=== PATIENT | female | born 1980 | race Caucasian/White ===

== ENCOUNTER 2019-11-08 09:32 | Emergency (ER) | payer OTHER ==
[2019-11-08 09:39] VITALS: TEMP 97.9
[2019-11-08] MEDS ORDERED: SODIUM CHLORIDE 0.9% 500 ML 500 ML IV STA (10:15)
[2019-11-08] MEDS ORDERED: ONDANSETRON 4 MG/2 ML VIAL IVP STA (10:15)
[2019-11-08] MEDS ORDERED: KETOROLAC 30 MG/ML 1 ML VIAL IVP STA (10:15)
--- NOTE | 2019-11-08 10:35 | ED ---
Female Urogenital HPI - General Chief complaint: Vaginal Bleeding Stated complaint: ovarien cyst vag bleed Time Seen by Provider: 11/08/19 10:04 Source: patient Mode of arrival: ambulatory - History of Present Illness Initial comments: Patient is a 39-year-old female presenting to emergency Department with complaints of lower abdominal pain, cramping, vaginal bleeding has been intermittent for the last 2 days. Patient states she has a history of partial hysterectomy and was diagnosed with a right-sided ovarian cyst few weeks ago. Patient states the bleeding has been intermittent, seems to increase when she is working as she does have a very strenuous job. She does admit to one episode of vomiting, mild nausea at this time. She denies any fever, chills. She denies a ny chest pain, shortness of breath. She denies any other abdominal surgeries. She states she was treated for a UTI approximately 2 weeks ago and did finish the medication. She denies any dysuria or increased frequency at this time. She is no further complaints at this time. Upon arrival to the ER, vital signs are stable. - Related Data Home Medications Medication Instructions Recorded Confirmed Citalopram Hydrobromide [CeleXA] 20 mg PO HS 11/08/19 11/08/19 QUEtiapine [SEROquel] 25 mg PO DAILY 11/08/19 11/08/19 QUEtiapine [SEROquel] 100 mg PO HS 11/08/19 11/08/19 QUEtiapine [SEROquel] 100 mg PO W/LUNCH 11/08/19 11/08/19 Allergies Allergy/AdvReac Type Severity Reaction Status Date / Time No Known Allergies Allergy Verified 11/08/19 11:01 Review of Systems ROS Statement: Those systems with pertinent positive or pertinent negative responses have been documented in the HPI. ROS Other: All systems not noted in ROS Statement are negative. Past Medical History Past Medical History: Hypertension Past Surgical History: Hysterectomy Additional Past Surgical History / Comment(s): cysts removed from ovaries Past Psychological History: Anxiety, Depression Smoking Status: Current every day smoker Past Alcohol Use History: None Reported Past Drug Use History: None Reported General Exam - General Exam Comments Initial Comments: GENERAL: Well-appearing, well-nourished and in no acute distress. HEAD: Atraumatic, normocephalic. EYES: Pupils equal round and reactive to light, extraocular movements intact, sclera anicteric, conjunctiva are normal. ENT: TMs normal, nares patent, oropharynx clear without exudates. Moist mucous membranes. NECK: Normal range of motion, supple without lymphadenopathy or JVD. LUNGS: Breath sounds clear to auscultation bilaterally and equal. No wheezes rales or rhonchi. HEART: Regular rate and rhythm without murmurs, rubs or gallops. ABDOMEN: Tender to palpation in the right lower quadrant, suprapubic. Soft, normoactive bowel sounds. No guarding, no rebound. No masses appreciated. EXTREMITIES: Normal range of motion, no pitting or edema. No clubbing or cyanosis. NEUROLOGICAL: Normal speech, normal gait. PSYCH: Normal mood, normal affect. SKIN: Warm, Dry, normal turgor, no rashes or lesions noted. External exam: Present: normal external exam Speculum exam: Present: normal speculum exam. Absent: vaginal bleeding, foreign body By manual exam: Present: normal by manual exam. Absent: cervical motion tenderness Course Vital Signs 11/08/19 11/08/19 09:35 11:42 Temperature 97.9 F Pulse Rate 104 H 83 Respiratory 18 16 Rate Blood Pressure 155/92 114/76 O2 Sat by Pulse 100 99 Oximetry Medical Decision Making - Medical Decision Making Patient is a 39-year-old female, history of partial hysterectomy presenting with vaginal bleeding, lower abdominal pain intermittent for 2 days. Vitals are stable. Exam reveals right lower quadrant suprapubic tenderness. Labs reveal no acute findings, urine shows no evidence of infection. Ultrasound revealed a left ovarian cyst, recommend follow-up in 6 weeks. No other acute findings. Patient has been comfortable in the ER. Patient is stable for discharge and will follow up with her TELEGRAPH OFFICE TELEPHONE CLERK. She is in agreement with this plan of care. Return parameters were discussed with the patient she verbalized understanding. Case discussed with Dr. Arevalo. - Lab Data Result diagrams: 11/08/19 10:29 11/08/19 10:29 Lab Results 11/08/19 11/08/19 11/08/19 Range/Units 10:29 10:29 10:29 WBC 7.2 (3.8-10.6) k/uL RBC 4.57 (3.80-5.40) m/uL Hgb 13.8 (11.4-16.0) gm/dL Hct 43.6 (34.0-46.0) % MCV 95.5 (80.0-100.0) fL MCH 30.2 (25.0-35.0) pg MCHC 31.6 (31.0-37.0) g/dL RDW 13.0 (11.5-15.5) % Plt Count 250 (150-450) k/uL Neutrophils % 82 % Lymphocytes % 13 % Monocytes % 3 % Eosinophils % 1 % Basophils % 1 % Neutrophils # 5.8 (1.3-7.7) k/uL Lymphocytes # 0.9 L (1.0-4.8) k/uL Monocytes # 0.2 (0-1.0) k/uL Eosinophils # 0.1 (0-0.7) k/uL Basophils # 0.0 (0-0.2) k/uL Sodium 139 (137-145) mmol/L Potassium 4.0 (3.5-5.1) mmol/L Chloride 109 H (98-107) mmol/L Carbon Dioxide 27 (22-30) mmol/L Anion Gap 3 mmol/L BUN 10 (7-17) mg/dL Creatinine 0.53 (0.52-1.04) mg/dL Est GFR (CKD-EPI)AfAm >90 (>60 ml/min/1.73 sqM) Est GFR (CKD-EPI)NonAf >90 (>60 ml/min/1.73 sqM) Glucose 86 (74-99) mg/dL Calcium 8.7 (8.4-10.2) mg/dL Total Bilirubin 0.4 (0.2-1.3) mg/dL AST 18 (14-36) U/L ALT 12 (4-34) U/L Alkaline Phosphatase 56 (38-126) U/L Total Protein 6.5 (6.3-8.2) g/dL Albumin 4.0 (3.5-5.0) g/dL Urine Color Colorless Urine Appearance Clear (Clear) Urine pH 6.5 (5.0-8.0) Ur Specific [place] 1.003 (1.001-1.035) Urine Protein Negative (Negative) Urine Glucose (UA) Negative (Negative) Urine Ketones Negative (Negative) Urine Blood Negative (Negative) Urine Nitrite Negative (Negative) Urine Bilirubin Negative (Negative) Urine Urobilinogen <2.0 (<2.0) mg/dL Ur Leukocyte Esterase Negative (Negative) Disposition Clinical Impression: Bilateral lower abdominal cramping, Ovarian cyst Disposition: HOME SELF-CARE Condition: Stable Instructions (If sedation given, give patient instructions): Ovarian Cyst (ED) Additional Instructions: Please return to the Emergency Department if symptoms worsen or any other concerns. Continue with ibuprofen or Aleve for discomfort. Follow-up with TELEGRAPH OFFICE TELEPHONE CLERK as discussed. Is patient prescribed a controlled substance at d/c from ED?: No Referrals: [facility] [Primary Care Provider] - 1-2 days
[2019-11-08 10:40] LABS: Appearance,Urine Clear (Clear); Basophils % (A) 1 %; Bilirubin,Urine Negative (Negative); Blood,Urine Negative (Negative); Color,Urine Colorless; Eosinophils # (A) 0.1 k/uL (0-0.7); Eosinophils % (A) 1 %; Glucose,Urine (UA) Negative (Negative); HCT 43.6 % (34.0-46.0); HGB 13.8 gm/dL (11.4-16.0); Ketones,Urine Negative (Negative); Leukocyte Esterase,Urine Negative (Negative); Lymphocytes # (A) 0.9 k/uL (1.0-4.8); Lymphocytes % (A) 13 %; MCH 30.2 pg (25.0-35.0); MCHC 31.6 g/dL (31.0-37.0); MCV 95.5 fL (80.0-100.0); Monocytes # (A) 0.2 k/uL (0-1.0); Monocytes % (A) 3 %; Neutrophils # (A) 5.8 k/uL (1.3-7.7); Neutrophils % (A) 82 %; Nitrite,Urine Negative (Negative); PH, Urine 6.5 (5.0-8.0); Platelet Count 250 k/uL (150-450); Protein,Urine Negative (Negative); RBC 4.57 m/uL (3.80-5.40); Specific Gravity,Urine 1.003 (1.001-1.035); Urobilinogen,Urine <2.0 mg/dL (<2.0); WBC 7.2 k/uL (3.8-10.6)
[2019-11-08 10:53] LABS: ALT 12 U/L (4-34); AST 18 U/L (14-36); African American GFR (CKD) >90 (>60 ml/min/1.73 sqM); Alkaline Phosphatase 56 U/L (38-126); Anion Gap 3 mmol/L; Blood Urea Nitrogen 10 mg/dL (7-17); Calcium 8.7 mg/dL (8.4-10.2); Carbon Dioxide 27 mmol/L (22-30); Chloride 109 mmol/L (98-107); Glucose 86 mg/dL (74-99); Non-African American GFR(CKD) >90 (>60 ml/min/1.73 sqM); Sodium 139 mmol/L (137-145); Total Bilirubin 0.4 mg/dL (0.2-1.3); Total Protein 6.5 g/dL (6.3-8.2)
--- NOTE | 2019-11-08 11:19 | US ---
EXAMINATION TYPE: US transvaginal DATE OF EXAM: 11/08/2019 COMPARISON: NONE CLINICAL HISTORY: pain, bleeding. Bleeding pain partial hysterectomy TECHNIQUE: Transvaginal (TV). EXAM MEASUREMENTS: Uterus: Surgically absent cm Endometrial Stripe: Surgically absent cm Right Ovary: Obscured by bowel gas. Left Ovary: 2.6 x 1.3 x 1.6 cm 1. Uterus: Surgically absent 2. Endometrium: Surgically absent 3. Right Ovary: Obscured by overlying bowel gas 4. Left Ovary: Cystic area seen 1.7 x 1.3 x 1.7 cm Spectral, color and waveform doppler imaging shows good arterial and venous flow within the left ov claudia; there is no evidence for ovarian torsion. 5. Bilateral Adnexa: wnl 6. Posterior cul-de-sac: wnl IMPRESSION: Left ovarian cystic lesion is of uncertain etiology and may reflect a functional ovarian cyst. Consid er follow-up study in 6 weeks.
[2019-11-08 11:43] VITALS: BP 114/76; PULSE 83; RESP 16
== END 2019-11-08 11:42 | disposition home or self-care (01) ==
LOC: EC 09:32
DX: N83.202 Unspecified ovarian cyst, left side (principal); F41.9 Anxiety disorder, unspecified; F32.9 Major depressive disorder, single episode, unspecified; F17.200 Nicotine dependence, unspecified, uncomplicated; Z79.899 Other long term (current) drug therapy; Z90.710 Acquired absence of both cervix and uterus
CPT/HCPCS: 36415; 80053; 85025; 81003; 93976; 76830; 99284; 96374; 96375; J2405; J1885

== ENCOUNTER 2020-02-14 17:43 | Emergency (ER) | payer OTHER ==
[2020-02-14] MEDS ORDERED: IBUPROFEN 600 MG TAB PO STA (18:50)
[2020-02-14] MEDS ORDERED: FAMOTIDINE 20 MG TAB PO STA (18:50)
[2020-02-14] MEDS ORDERED: DEXAMETHASONE SOD PHOSPHATE 10 MG/ML 1 ML VIAL IM STA (18:50)
[2020-02-14] MEDS ORDERED: ACET/COD 120MG/12MG LIQ 5ML CUP PO ONE (18:50)
[2020-02-14] MEDS ORDERED: IPRATROPIUM-ALBUTEROL 3 ML NEB INHALATION STA (18:50)
[2020-02-14] MEDS ORDERED: hydrOXYzine HCL 25 MG TAB PO STA (18:50)
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
--- NOTE | 2020-02-14 19:08 | XR ---
EXAMINATION TYPE: XR chest 2V DATE OF EXAM: 02/14/2020 COMPARISON: NONE HISTORY: Chest pain. TECHNIQUE: Frontal and lateral views of the chest are obtained. FINDINGS: There is no focal air space opacity, pleural effusion, or pneumothorax seen. The cardiac silhouette size is within normal limits. The osseous structures are intact. IMPRESSION: No acute cardiopulmonary process.
[2020-02-14] MEDS ORDERED: AZITHROMYCIN 500 MG TAB PO STA (19:10)
[2020-02-14 19:45] VITALS: BP 130/87; PULSE 62; RESP 18; TEMP 98.1
== END 2020-02-14 19:42 | disposition home or self-care (01) ==
LOC: EC 17:43
DX: J20.9 Acute bronchitis, unspecified (principal); J06.9 Acute upper respiratory infection, unspecified; F41.9 Anxiety disorder, unspecified; F32.9 Major depressive disorder, single episode, unspecified; I10 Essential (primary) hypertension; F17.200 Nicotine dependence, unspecified, uncomplicated; Z79.899 Other long term (current) drug therapy
CPT/HCPCS: 94640; 71046; 99285; 96372; J1100

== ENCOUNTER 2020-08-30 16:47 | Emergency (ER) | payer OTHER ==
[2020-08-30 16:55] VITALS: PULSE 111; RESP 18; TEMP 97.9
[2020-08-30] MEDS ORDERED: HYDROmorphone 1 MG/ML 1 ML SYRINGE IVP STA (17:12)
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
[2020-08-30 17:21] VITALS: BP 146/111
[2020-08-30 17:27] LABS: Basophils % (A) 0 %; Eosinophils # (A) 0.1 k/uL (0-0.7); Eosinophils % (A) 1 %; HCT 39.2 % (34.0-46.0); HGB 13.1 gm/dL (11.4-16.0); Lymphocytes # (A) 0.9 k/uL (1.0-4.8); Lymphocytes % (A) 12 %; MCH 30.1 pg (25.0-35.0); MCHC 33.3 g/dL (31.0-37.0); MCV 90.4 fL (80.0-100.0); Mean Platelet Volume 7.1; Monocytes # (A) 0.3 k/uL (0-1.0); Monocytes % (A) 4 %; Neutrophils # (A) 6.8 k/uL (1.3-7.7); Neutrophils % (A) 83 %; Platelet Count 333 k/uL (150-450); RBC 4.33 m/uL (3.80-5.40); RDW 13.1 % (11.5-15.5); WBC 8.2 k/uL (3.8-10.6)
[2020-08-30 17:36] LABS: INR 0.9 (<1.2); Partial Thromboplastin Time 25.2 sec (22.0-30.0); Prothrombin Time 9.6 sec (9.0-12.0)
[2020-08-30 17:41] LABS: ALT 12 U/L (4-34); AST 24 U/L (14-36); African American GFR (CKD) >90 (>60 ml/min/1.73 sqM); Albumin 4.3 g/dL (3.5-5.0); Alcohol <10 mg/dL; Alkaline Phosphatase 78 U/L (38-126); Anion Gap 9 mmol/L; Blood Urea Nitrogen 10 mg/dL (7-17); Calcium 9.6 mg/dL (8.4-10.2); Carbon Dioxide 26 mmol/L (22-30); Chloride 104 mmol/L (98-107); Glucose 104 mg/dL (74-99); Non-African American GFR(CKD) >90 (>60 ml/min/1.73 sqM); Potassium 3.9 mmol/L (3.5-5.1); Sodium 139 mmol/L (137-145); Total Bilirubin 0.5 mg/dL (0.2-1.3); Total Protein 7.2 g/dL (6.3-8.2)
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
[2020-08-30] MEDS ORDERED: HYDROcodone/APAP 5-325MG 1 EACH TAB PO STA (19:16)
== END 2020-08-30 19:22 | disposition home or self-care (01) ==
LOC: EC 16:47
DX: S02.2XXA Fracture of nasal bones, initial encounter for closed fracture (principal); S05.12XA Contusion of eyeball and orbital tissues, left eye, initial encounter; M25.552 Pain in left hip; I10 Essential (primary) hypertension; F32.9 Major depressive disorder, single episode, unspecified; F41.9 Anxiety disorder, unspecified; F12.90 Cannabis use, unspecified, uncomplicated; V88.9XXA Person injured in other specified (collision)(noncollision) transport accidents involving nonmotor vehicle, nontraffic, initial encounter; Y92.410 Unspecified street and highway as the place of occurrence of the external cause
CPT/HCPCS: 36415; 93005; 80053; 84484; 85025; 85610; 85730; 73502; 73552; 72125; 70486; 70450; 99284; 96374; G0480; J1170; 80320

== ENCOUNTER 2022-04-30 11:52 | Emergency (ER) | payer OTHER ==
[2022-04-30 11:58] VITALS: BP 138/99; PULSE 101; RESP 20; TEMP 97.5
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
--- NOTE | 2022-04-30 13:18 | XR ---
EXAMINATION TYPE: XR lumbosacral spine min 4V DATE OF EXAM: 04/30/2022 CLINICAL HISTORY: Low back pain. TECHNIQUE: Frontal, lateral, and oblique images of the lumbar spine are obtained. COMPARISON: None FINDINGS: There are 5 lumbar type vertebral bodies identified. There is dextroconvex scoliosis cente red at L2-L3 level. There is multilevel grade 1 retrolisthesis throughout the entire lumbar spine. Ve rtebral body heights are maintained. Moderate disc space narrowing with mild to moderate anterior spu rring and endplate sclerosis noted at L3-L4 level. Additional mild to moderate multilevel anterior an d lateral spurring is seen. Oblique images appear within normal limits. Overlying soft tissue is unre markable. IMPRESSION: As above.
--- NOTE | 2022-04-30 13:20 | XR ---
EXAMINATION TYPE: XR cervical spine comp DATE OF EXAM: 04/30/2022 TECHNIQUE: Frontal, lateral, oblique, and open mouth view of the cervical spine are obtained. HISTORY: pain COMPARISON: CT cervical spine August 30, 2020 FINDINGS: The cervical spine is visualized in its entirety from C1 thru the top of T1 level, it is s atisfactory in alignment without evidence of acute fracture or dislocation. The pre-vertebral soft t issue appears within normal limits. The C1-C2 articulation is within normal limits on the open mouth view. Vertebral body heights and disc space heights are maintained. Mild to moderate anterior spurr ing C5-C6 and C6-C7 levels. Mild anterior spurring C3-C4 level. The oblique images are within normal limits. Overlying soft tissue is unremarkable. IMPRESSION: As above.
[2022-04-30] MEDS ORDERED: KETOROLAC 15 MG/ML 1 ML VIAL IM STA (14:13)
== END 2022-04-30 14:27 | disposition home or self-care (01) ==
LOC: EC 11:52
DX: M54.50 Low back pain, unspecified (principal); I10 Essential (primary) hypertension; F41.9 Anxiety disorder, unspecified; F32.A Depression, unspecified; F17.200 Nicotine dependence, unspecified, uncomplicated; F12.90 Cannabis use, unspecified, uncomplicated
CPT/HCPCS: 72050; 72110; 99284; 96372; J1885

== ENCOUNTER 2022-10-11 10:50 | Day surgery (SDC) | payer OTHER ==
[2022-10-09 16:13] VITALS: BMI 19.1
[~2022-10-11 10:50] MED LIST: LACTATED RINGERS 1,000 ML IV SCH
[2022-10-11 11:14] VITALS: RESP 16; TEMP 97
[2022-10-11] MEDS ORDERED: PROPOFOL 10 MG/ML 20 ML VIAL IV ONE (11:33)
[2022-10-11] MEDS ORDERED: fentaNYL (PF) 50 MCG/ML 2 ML AMP ONE (11:33)
[2022-10-11] MEDS ORDERED: MIDAZOLAM 2 MG/2 ML VIAL ONE (11:33)
[2022-10-11] MEDS ORDERED: LIDOCAINE 2% INJ 20 MG/ML (2 ML VIAL) ONE (11:33)
--- NOTE | 2022-10-11 11:49 | P.PCN ---
Date of Procedure: 10/11/22 Procedure(s) Performed: Brief history: Patient is a pleasant 41-year-old white female scheduled for an elective upper endoscopy as well as colonoscopy as a part of evaluation of chronic intermittent nausea vomiting and change in bowel habits for the last several years duration Procedure performed: Esophagogastroduodenoscopy with biopsy Colonoscopy with random biopsy Preoperative diagnosis: Chronic intermittent nausea vomiting Change in bowel habits Anesthesia: MAC Procedure: After informed consent was obtained from the patient was brought into the endoscopy unit and IV sedation was administered by anesthesia under continuous monitoring. Initially upper endoscopy was done. The Olympus GF 160 video endoscope was inserted inserted into the mouth and esophagus intubated without any difficulty and was gradually advanced into the stomach and duodenum and carefully examined. The bulb and second part of the duodenum appeared normal. Biopsies were done from the duodenum to rule out celiac disease The scope was then withdrawn into the stomach adequately insufflated with air and upon careful examination the antrum mild gastritis and biopsies were done from this area. Mucosa body, cardia and fundus appeared normal. The scope was then withdrawn into the esophagus. The GE junction was located at 40 cm to the incisors. It appeared regular with no erythema erosions or ulcerations. Rest of the esophagus appeared normal. Patient tolerated the procedure well. At this time the patient continued to remain sedation. Initial digital rectal examination was normal. Olympus CF 160 video colonoscope was then inserted into the rectum and gradually advanced to the cecum without any difficulty. Careful examination was performed as the scope was gradually being withdrawn. The prep was excellent. The cecum, ascending colon, transverse colon, descending colon, sigmoid colon and rectum appeared normal. The transverse colon there was a 3-4 mm flat polyp that was removed by cold biopsy. Random biopsies were done from ascending and descending colon to rule out microscopic/collagenous colitis. Retroflexion was performed in the rectum and no lesions were noted. Patient tolerated the procedure well. Impression: 1. Upper endoscopy revealed mild antral gastritis but no evidence of esophagitis or peptic ulcer disease 2. Colonoscopy revealed a 3 mm flat transverse colon polyp status post cold biopsy and the rest of the colon appeared normal Recommendations: Findings of this examination were discussed with the patient as well as her family. She was advised to follow with the biopsy results. She'll be seen in office in 2 weeks. Continue with Prilosec 20 mg daily as well as Zofran as needed. Follow up in office in 2 weeks
[2022-10-11 12:09] VITALS: BP 110/62; PULSE 62
== END 2022-10-11 12:39 | disposition home or self-care (01) ==
LOC: ORWHC2ENDO 10:50
PROVIDERS: ATTEND Internal Medicine Gastroenterology
DX: D12.3 Benign neoplasm of transverse colon (principal); K29.50 Unspecified chronic gastritis without bleeding; K21.00 Gastro-esophageal reflux disease with esophagitis, without bleeding; I10 Essential (primary) hypertension; F17.200 Nicotine dependence, unspecified, uncomplicated; F41.9 Anxiety disorder, unspecified; F32.A Depression, unspecified; F12.90 Cannabis use, unspecified, uncomplicated; Z90.710 Acquired absence of both cervix and uterus; Z79.899 Other long term (current) drug therapy
CPT/HCPCS: 88305; 45380; 43239; J2250; J3010; J2704; J2001

== ENCOUNTER 2024-08-12 14:07 | Emergency (ER) | payer OTHER ==
[2024-08-12 14:20] VITALS: RESP 16; TEMP 97.8
--- NOTE | 2024-08-12 14:41 | ED ---
General Adult HPI - General Chief complaint: Extremity Problem,Nontraumatic Stated complaint: L arm pain, growth under arm Time Seen by Provider: 08/12/24 14:22 Source: patient, RN notes reviewed Mode of arrival: ambulatory Limitations: no limitations - History of Present Illness Initial comments: This is a 44-year-old female presents emergency department for complaint of left shoulder pain over the past 3 weeks. Patient states that she had multiple falls over the winter and a recent fall happening about a month ago she tripped over her cat believes that she may have strained her shoulder at this time. Additionally, patient states that she has been having left wrist pain with pain to the left axilla approximately over the past year. She states that she feels a BB sized mass in her left axilla. She denies nipple discharge, overlying erythema, purulent discharge. Patient does have a familial history of breast cancer in her mother and maternal grandmother. She denies previous mammogram testing. history of hysterectomy. - Related Data Home Medications Medication Instructions Recorded Confirmed No Known Home Medications 08/12/24 08/12/24 Allergies Allergy/AdvReac Type Severity Reaction Status Date / Time No Known Allergies Allergy Verified 08/12/24 14:46 Review of Systems ROS Statement: Those systems with pertinent positive or pertinent negative responses have been documented in the HPI. ROS Other: All systems not noted in ROS Statement are negative. Past Medical History Past Medical History: Hypertension Additional Past Medical History / Comment(s): freq nausea and vomiting yellow mucus every morning, hx no longer needing rx for htn History of Any Multi-Drug Resistant Organisms: None Reported Past Surgical History: Hysterectomy, Orthopedic Surgery Additional Past Surgical History / Comment(s): cysts removed from ovaries,partial hysterectomy Past Anesthesia/Blood Transfusion Reactions: No Reported Reaction Past Psychological History: Anxiety, Depression Smoking Status: Current every day smoker, Vaper - Past Family History Mother Family Medical History: Cancer Additional Family Medical History / Comment(s): breast General Exam Limitations: no limitations General appearance: alert, in no apparent distress Eye exam: Present: normal appearance, PERRL, EOMI. Absent: scleral icterus, conjunctival injection, periorbital swelling Neck exam: Present: normal inspection. Absent: tenderness, meningismus, lymphadenopathy Respiratory exam: Present: normal lung sounds bilaterally. Absent: respiratory distress, wheezes, rales, rhonchi, stridor Cardiovascular Exam: Present: regular rate, normal rhythm, normal heart sounds. Absent: systolic murmur, diastolic murmur, rubs, gallop, clicks GI/Abdominal exam: Present: soft, normal bowel sounds. Absent: distended, tenderness, guarding, rebound, rigid Extremities exam: Present: normal inspection, full ROM, normal capillary refill. Absent: tenderness, pedal edema, joint swelling, calf tenderness Skin exam: Present: other (left breast tenderness to palpation, diffuse, no nipple discharge/discoloration, erythema or swelling. noted left axillary tenderness to palpation with mild noted 5 mmfluctuant area) Course Vital Signs 08/12/24 14:17 Temperature 97.8 F Pulse Rate 84 Respiratory 16 Rate Blood Pressure 133/100 O2 Sat by Pulse 98 Oximetry Medical Decision Making - Medical Decision Making Was pt. sent in by a medical professional or institution (ERICKA Nixon, DOPE HOUSE OPERATOR HELPER, urgent care, hospital, or assisted...) When possible be specific @ -No Did you speak to anyone other than the patient for history (EMS, parent, family, police, friend...)? What history was obtained from this source @ -No Did you review nursing and triage notes (agree or disagree)? Why? @ -I reviewed and agree with nursing and triage notes Were old charts reviewed (outside hosp., previous admission, EMS record, old EKG, old radiological studies, urgent care reports/EKG's, assisted records)? Report findings @ -No old charts were reviewed Differential Diagnosis (chest pain, altered mental status, abdominal pain women, abdominal pain men, vaginal bleeding, weakness, fever, dyspnea, syncope, headache, dizziness, GI bleed, back pain, seizure, CVA, palpatations, mental health, musculoskeletal)? @ -Differential Musculoskeletal Muscular strain, contusion, ligament sprain, fracture, arthritis, septic arthritis, bursitis, cellulitis, muscle spasm, nerve compression, DVT, arterial occlusion, herpes zoster, electrolyte abnormality, tumor.... This is not meant to be in all inclusive list EKG interpreted by me (3pts min.). @ -None X-rays interpreted by me (1pt min.). @ -X-ray of the left shoulder no acute osseous abnormality CT interpreted by me (1pt min.). @ -None done U/S interpreted by me (1pt. min.). @ -Ultrasound breast a 8 x 4 mm lymph node with minimally thickened cortex that may reflect reactive lymph node with additional lymph node noted within the left axilla measuring 1.3 x 1.8 cm with no suspicious solid masses present, recommend 6-month follow-up, recommend mammogram What testing was considered but not performed or refused? (CT, X-rays, U/S, labs)? Why? @ -None What meds were considered but not given or refused? Why? @ -None Did you discuss the management of the patient with other professionals (professionals i.e. , PA, DOPE HOUSE OPERATOR HELPER, lab, RT, psych nurse, manager social media, director volunteer services, teacher, chief innovation officer, immigration case worker)? Give summary @ -No Was smoking cessation discussed for >3mins.? @ -No Was critical care preformed (if so, how long)? @ -No Were there social determinants of health that impacted care today? How? (Homelessness, low income, unemployed, alcoholism, drug addiction, transportation, low edu. Level, literacy, decrease access to med. care, [facility], rehab)? @ -No Was there de-escalation of care discussed even if they declined (Discuss DNR or withdrawal of care, Hospice)? DNR status @ -No What co-morbidities impacted this encounter? (DM, HTN, Smoking, COPD, CAD, Cancer, CVA, ARF, Chemo, Hep., AIDS, mental health diagnosis, sleep apnea, morbid obesity)? @ -None Was patient admitted / discharged? Hospital course, mention meds given and route, prescriptions, significant lab abnormalities, going to OR and other pertinent info. @ -Discharge. 44 review resenting with left shoulder and left axillary pain. X-ray is unremarkable. Ultrasound reveals 2 mildly enlarged lymph nodes with no discernible mass. Patient is recommended to have mammogram outpatient addition to repeat ultrasound in 6 months. Provided with primary care provider contact information. Case discussed with Dr. Arevalo Undiagnosed new problem with uncertain prognosis? @ -No Drug Therapy requiring intensive monitoring for toxicity (Heparin, Nitro, In sulin, Cardizem)? @ -No Were any procedures done? @ -No Diagnosis/symptom? @ -lymphadenopathy, shoulder pain Acute, or Chronic, or Acute on Chronic? @ -acute Uncomplicated (without systemic symptoms) or Complicated (systemic symptoms)? @ -uncomplicated Side effects of treatment? @ -No Exacerbation, Progression, or Severe Exacerbation? @ -No Poses a threat to life or bodily function? How? (Chest pain, [place], [place], pneumonia, PE, COPD, DKA, ARF, appy, cholecystitis, CVA, Diverticulitis, Homicidal, Suicidal, threat to staff... and all critical care pts) @ -No Disposition Clinical Impression: Enlarged lymph nodes in armpit, Shoulder pain Disposition: HOME SELF-CARE Condition: Good Instructions (If sedation given, give patient instructions): Lymphadenopathy (ED) Additional Instructions: Please return to the Emergency Department if symptoms worsen or any other concerns. Please follow-up with primary care provider to schedule outpatient mammogram testing. Additionally, it is recommend to repeat ultrasound testing in 6 months. Is patient prescribed a controlled substance at d/c from ED?: No Referrals: None,Stated [Primary Care Provider] - 1-2 days [facility] [NON-STAFF] - 1-2 days [facility] [NON-STAFF] - 1-2 days Time of Disposition: 15:24
[2024-08-12] MEDS: ACETAMINOPHEN TAB 325 MG TAB PO STA (14:44)
--- NOTE | 2024-08-12 14:49 | XR ---
EXAMINATION TYPE: XR shoulder complete LT DATE OF EXAM: 08/12/2024 2:44 PM INDICATION: Patient age:Female; 44 years old; Reason for study: pain; pain COMPARISON: None TECHNIQUE: The left shoulder was examined in AP, internally rotated and scapular Y projections. . FINDINGS: No evidence of acute osseous pathology, joint dislocation, or soft tissue swelling. The remaining por tions of the visualized chest are unremarkable. IMPRESSION: No acute osseous pathology. [facility], , 08/12/2024 2:47 PM
--- NOTE | 2024-08-12 15:16 | USB ---
Reason for Exam: Clinical finding. Risk Values: Vicky 5 year model risk: 0.6%. NCI Lifetime model risk: 6.3%. Technique: Method: Targeted. Findings: The area of palpable concern of the left breast and the axilla of the left breast were scanned. Ultrasound of the left breast at the 1:00 position correlating with the palpable abnormality was performed. Identified is a 8 x 4 mm lymph node with minimally thickened cortex which may reflect a reactive lymph node. An additional lymph node is seen within the left axilla measuring up to 1.3 x 1.8 cm. No suspicious solid masses are present at this time. Six-month follow-up ultrasound is recommended. Overall Assessment: Probably benign, BI-RAD 3 Management: Diagnostic Breast Ultrasound of the left breast in 6 months. A clinical breast exam by your physician is recommended on an annual basis and results should be correlated with mammographic findings. This exam should not preclude additional follow-up of suspicious palpable abnormalities. Results were given to the patient verbally at the time of exam. [facility], , 08/12/2024 3:13 PM. Electronically signed and approved by: Fransisco Greenwood M.D. [facility]
[2024-08-12 15:30] VITALS: BP 130/89; PULSE 80
== END 2024-08-12 15:30 | disposition home or self-care (01) ==
LOC: EC 14:07
DX: M25.512 Pain in left shoulder (principal); R59.0 Localized enlarged lymph nodes; F17.290 Nicotine dependence, other tobacco product, uncomplicated
CPT/HCPCS: 99284